=== PATIENT | male | born 1960 | race African-American/Black ===

== ENCOUNTER 2018-11-18 00:54 | Emergency (ER) | payer OTHER ==
[~2018-11-18] VITALS: Ht 175.3 cm; Wt 103.0 kg
[~2018-11-18 00:54] MED LIST: ALEVE220 MG PO; ASPIR 8181 MG PO; FENOFIBRATE160 MG PO; KLOR-CON 1010 MEQ PO; LIPITOR10 MG PO; SYNTHROID137 MC1 PO; TRI-BUFFERED A325 M1 PO; ZESTORETIC 20-1 EAC1 PO; ZYLOPRIM300 MG PO
[2018-11-18 00:59] VITALS: BP 117/70
[2018-11-18] MEDS ORDERED: OXYCODONE-ACET1 EACH PO (01:06)
[2018-11-18] MEDS ORDERED: NEURONTIN 300300 M1 PO (01:07)
[2018-11-18 01:52] LABS: ABSOLUTE NEUTROPHILS 6.2 thou/uL (1.4-8.2); BASOPHILS 1.3 % (0.0-2.0); HEMATOCRIT 42.9 % (42.0-52.0); HEMOGLOBIN 14.4 gm/dL (14.0-18.0); LYMPHOCYTES 21.4 % (24.0-44.0); MCH 29.2 pg (26.0-34.0); MCHC 33.4 g/dL (28.0-37.0); MCV 87.2 fL (80.0-100.0); PLATELET COUNT 371 thou/uL (150-400); POLYS 67.3 % (36.0-66.0); RBC 4.92 mil/uL (4.50-6.00); RDW 13.2 % (10.5-14.5); WBC 9.3 thou/uL (4.0-11.0)
[2018-11-18 01:58] LABS: CALCIUM 9.6 mg/dL (8.5-10.1); CREATININE 1.8 mg/dL (0.7-1.3); POTASSIUM 4.1 mmol/L (3.5-5.1)
[2018-11-18 02:04] LABS: ALBUMIN 3.6 g/dL (3.4-5.0); TOTAL BILIRUBIN 0.4 mg/dL (<0.1-1.0)
[2018-11-18 03:42] LABS: URINE BILIRUBIN NEGATIVE (Negative); URINE BLOOD NEGATIVE (Negative); URINE CLARITY CLEAR; URINE COLOR YELLOW; URINE GLUCOSE-RANDOM* NEGATIVE (Negative); URINE KETONES NEGATIVE (Negative); URINE LEUKOCYTES-REFLEX NEGATIVE (Negative); URINE NITRITE-REFLEX NEGATIVE (Negative); URINE PROTEIN (DIPSTICK) NEGATIVE (Negative); URINE SPECIFIC GRAVITY 1.015 (1.005-1.035)
[2018-11-18 07:07] VITALS: BP 122/70
[2018-11-18 08:40] VITALS: BP 121/74
== END 2018-11-18 08:18 | disposition home or self-care (01) ==
LOC: ER 00:54 → EROBS 06:11 → ER 08:18
PROVIDERS: Emergency Medicine
DX: T81.43XA Infection following a procedure, organ and space surgical site, initial encounter (principal); L02.416 Cutaneous abscess of left lower limb; T84.52XA Infection and inflammatory reaction due to internal left hip prosthesis, initial encounter; I10 Essential (primary) hypertension; E78.5 Hyperlipidemia, unspecified; M10.9 Gout, unspecified; E03.9 Hypothyroidism, unspecified